=== PATIENT | male | born 2000 | race Caucasian/White ===

== ENCOUNTER 2020-01-10 11:53 | Emergency (ER) | payer SELFPAY ==
[~2020-01-10] VITALS: Ht 177.8 cm; Wt 102.0 kg
[2020-01-10 11:57] VITALS: BP 157/133
[2020-01-10] MEDS ORDERED: LIDOCAINE 1% Multi-Dose 20 ML VIAL. ONE (12:01)
--- NOTE | 2020-01-10 12:06 | PHYS DOC ---
Past History Past Medical History: No Pertinent History Past Surgical History: Tonsillectomy Smoking: Non-smoker Alcohol Use: None Drug Use: None General Adult EDM: Chief Complaint: LACERATION/AVULSION HPI: HPI: Patient is a 19-year-old male, fully immunized who presents to the emergency department for evaluation. He states he was at work, when he accidentally cut his left hand on a metal can. He sustained lacerations to the dorsal aspect of the left ring finger overlying the middle phalanx, somewhat radially, as well as a volar wound over the proximal phalanx of his middle finger. He denies any distal numbness, weakness, and is able to fully flex and extend his hand. His tetanus is up-to-date. He has no other complaints. Review of Systems: Review of Systems: Constitutional: Denies fever or chills Musculoskeletal: Denies back pain or joint pain Integument: Denies rash Neurologic: Denies focal weakness or sensory changes Heart Score: Risk Factors: Risk Factors: DM, Current or recent (<one month) smoker, HTN, HLP, family history of CAD, obesity. Risk Scores: Score 0 - 3: 2.5% MACE over next 6 weeks - Discharge Home Score 4 - 6: 20.3% MACE over next 6 weeks - Admit for Clinical Observation Score 7 - 10: 72.7% MACE over next 6 weeks - Early Invasive Strategies Current Medications: Current Meds: Current Medications Medications (Trade) Dose Ordered Sig/Carlos Start Time Stop Time Status Last Admin Dose Admin Lidocaine HCl 20 ml STK-MED ONCE 01/10/20 12:01 01/10/20 12:02 DC Physical Exam: PE: PHYSICAL EXAM: HEENT: Atruamatic NECK: Supple, normal ROM, non-tender. CARDIAC: Regular Rate and Rhythm LUNGS: Clear Bilaterally EXTREMITIES: There is a laceration on the dorsal aspect of the left ring finger, as well as on the volar surface of the left middle finger. Capillary refill is intact distally, as a sensation, full flexion and extension of the digits of the left hand is present when tested against resistance. The remainder the extremities are atraumatic. EKG: EKG: [] Radiology/Procedures: Radiology/Procedures: [] Course & Med Decision Making: Course & Med Decision Making LACERATION REPAIR PROCEDURE NOTE: The dorsal left ring finger 3 centimeter laceration was irrigated copiously with normal saline, anesthetized with 1% lidocaine without epinephrine, prepped with Betadine, and draped with sterile drapes. Sterile technique was used. The wound was closed with #6 running interlocking 4-0 nylon sutures. Good epithelial approximation was obtained. The patient tolerated the procedure well. LACERATION #2 REPAIR PROCEDURE NOTE: The volar left middle finger 3 centimeter laceration was irrigated copiously with normal saline, anesthetized with 1% lidocaine without epinephrine, prepped with Betadine, and draped with sterile drapes. Sterile technique was used. The wound was closed with #4 interrupted 4-0 nylon sutures. Good epithelial approximation was obtained. The patient tolerated the procedure well. Dragon Disclaimer: Dragon Disclaimer: This electronic medical record was generated, in whole or in part, using a voice recognition dictation system. Departure Departure: Impression: Primary Impression: Hand laceration Disposition: 01 HOME/RESIDENCE PRIOR TO ADM Condition: STABLE Patient Instructions: Laceration Care, Adult, Sutured Wound Care Additional Instructions: Keep wounds clean and dry. Stitches should be removed in 10 to 14 days. Please contact your PCP or return to the emergency department for suture removal. Justification of Admission: Justification of Admission: Justification of Admission Dx: N/A ERNST FERREIRA MD Jan 10, 2020 12:06
[2020-01-10] MEDS ORDERED: BACITRACIN ZINC TOPICAL OINT PACKET. TP ONE (12:45)
== END 2020-01-10 13:00 | disposition home or self-care (01) ==
LOC: ER 11:53
DX: S61.213A Laceration without foreign body of left middle finger without damage to nail, initial encounter (principal); S61.215A Laceration without foreign body of left ring finger without damage to nail, initial encounter; W26.8XXA Contact with other sharp object(s), not elsewhere classified, initial encounter; Y93.89 Activity, other specified; Y92.89 Other specified places as the place of occurrence of the external cause; Y99.0 Civilian activity done for income or pay
CPT/HCPCS: 12002; 99283

== ENCOUNTER 2020-01-22 09:59 | Emergency (ER) | payer OTHER ==
[~2020-01-22] VITALS: Ht 177.8 cm; Wt 100.0 kg
[2020-01-22 10:04] VITALS: BP 121/83
--- NOTE | 2020-01-22 10:11 | PHYS DOC ---
Past History Past Medical History: No Pertinent History Past Surgical History: No Surgical History, Tonsillectomy Smoking: Non-smoker Alcohol Use: Occasionally Drug Use: None General Adult EDM: Chief Complaint: SUTURE/STAPLE REMOVAL HPI: HPI: Patient is a 19 year old male who presents for evaluation of suture movable to his left hand. He states he initially cut it with a can about 13 days ago. Wound is healing well and there is no redness or drainage. Full range of motion to the affected finger is noted. They are neurovascular intact Review of Systems: Review of Systems: Constitutional: Denies fever or chills Eyes: Denies change in visual acuity HENT: Denies nasal congestion or sore throat Respiratory: Denies cough or shortness of breath Cardiovascular: Denies chest pain or edema GI: Denies abdominal pain, nausea, vomiting, bloody stools or diarrhea : Denies dysuria Musculoskeletal: Denies back pain or joint pain Integument: Denies rash Neurologic: Denies headache, focal weakness or sensory changes Endocrine: Denies polyuria or polydipsia Lymphatic: Denies swollen glands Psychiatric: Denies depression or anxiety Heart Score: Risk Factors: Risk Factors: DM, Current or recent (<one month) smoker, HTN, HLP, family history of CAD, obesity. Risk Scores: Score 0 - 3: 2.5% MACE over next 6 weeks - Discharge Home Score 4 - 6: 20.3% MACE over next 6 weeks - Admit for Clinical Observation Score 7 - 10: 72.7% MACE over next 6 weeks - Early Invasive Strategies Allergies: Allergies: Allergies Coded Allergies Type Severity Reaction Last Updated Verified No Known Drug Allergies 01/22/20 No Physical Exam: PE: Constitutional: Well developed, well nourished, no acute distress, non-toxic appearance. [] HENT: Normocephalic, atraumatic, bilateral external ears normal[] Eyes: conjunctiva normal, no discharge. [] Neck: Normal range of motion, no tenderness [] Cardiovascular:Heart rate regular rhythm, no murmur [] Lungs & Thorax: Bilateral breath sounds clear to auscultation [] Abdomen: Bowel sounds normal, soft, no tenderness[] Skin: Warm, dry, no erythema, no rash. [] Back: No tenderness. [] Extremities: No tenderness, no cyanosis, no clubbing, ROM intact, no edema. Healing suture sites left middle and ring finger [] Neurologic: Alert and oriented, normal motor function, normal sensory function, no focal deficits noted. [] Psychologic: Affect normal, judgement normal, mood normal. [] EKG: EKG: [] Radiology/Procedures: Radiology/Procedures: [] Course & Med Decision Making: Course & Med Decision Making Pertinent Labs and Imaging studies reviewed. (See chart for details) [] Dragon Disclaimer: Dragon Disclaimer: This electronic medical record was generated, in whole or in part, using a voice recognition dictation system. [id number] Nursing staff removed sutures, wound intact and healing well. Pt has good tendon function. Departure Departure: Impression: Primary Impression: Visit for suture removal Disposition: HOME/RESIDENCE PRIOR TO ADM Condition: STABLE Referrals: PCP,NO (PCP) Patient Instructions: Suture Removal Additional Instructions: Keep wounds clean and dry, apply triple antibiotic ointment on them daily for the next several days. Return if worsen, infection develops etc. Justification of Admission: Justification of Admission: Justification of Admission Dx: N/A ESTEFANY BAINS DO Jan 22, 2020 10:11
== END 2020-01-22 10:20 | disposition home or self-care (01) ==
LOC: ER 09:59
DX: S61.215D Laceration without foreign body of left ring finger without damage to nail, subsequent encounter (principal); S61.213D Laceration without foreign body of left middle finger without damage to nail, subsequent encounter; Z90.89 Acquired absence of other organs; W26.8XXD Contact with other sharp object(s), not elsewhere classified, subsequent encounter
CPT/HCPCS: 99281; 99282

== ENCOUNTER 2021-01-07 11:01 | Emergency (ER) | payer OTHER ==
[~2021-01-07] VITALS: Ht 177.8 cm; Wt 118.5 kg
--- NOTE | 2021-01-07 12:06 | RAD ---
AP, lateral, and oblique views of the left hand were performed. History: Hand pain Comparison: none. No fracture or dislocation is seen. The joint spaces are normal in appearance. No significant soft tissue swelling is seen. Impression: 1. Negative exam of the left hand. Electronically signed by: Emmanuel Jesus MD (01/07/2021 12:04 PM) [id number]
[2021-01-07] MEDS ORDERED: DIPH,PERTUSS(ACELL),TET VAC/PF 0.5 ML SYRINGE. VAX IM ONE (12:30)
--- NOTE | 2021-01-07 12:54 | PHYS DOC ---
Past History Past Medical History: No Pertinent History Past Surgical History: Tonsillectomy Smoking: Non-smoker Alcohol Use: None Drug Use: None Adult General Chief Complaint Chief Complaint: LACERATION/AVULSION [facility] Patient is a 20-year-old previously healthy male who presents to the emergency room after cutting his thumb at work. Patient was pulling wires through when one of the wires cut his finger. He denies any significant bleeding. He states he is able to fully move the thumb. He is unsure when his last tetanus shot was and would like to get a tetanus shot today. He has some mild aching around the wound. He denies any other injuries. Review of Systems Review of Systems Complete ROS is negative unless otherwise documented in HPI Current Medications Current Medications Current Medications Medications (Trade) Dose Ordered Sig/Carlos Start Time Stop Time Status Last Admin Dose Admin Diphtheria/ Pertussis/Tetanus Vacc (ADACEL TDap SYRINGE) 0.5 ml ONCE ONCE 01/07/21 12:30 01/07/21 12:31 DC 01/07/21 12:34 0.5 ML Allergies Allergies Allergies Coded Allergies Type Severity Reaction Last Updated Verified No Known Drug Allergies 01/22/20 No Physical Exam Physical Exam General: Awake, alert, NAD. Well Nourished, well hydrated. Cooperative HEENT: Atraumatic, EOMI, PERRL, airway patent, moist oral mucosa Neck: Supple, trachea midline Respiratory: CTA bilaterally, normal effort, no wheezing/crackles CV: RRR, no murmur, cap refill <2 GI: Soft, nondistended, nontender, no masses MSK: Left hand: Intact range of motion of all 5 fingers, full extension and flexion of the left thumb, intact sensation Skin: Warm, dry. Left thumb: 2 cm superficial laceration to the dorsal surface below the joint Neuro: A&O x3, speech NL, sensory and motor grossly intact, no focal deficits Psych: Normal affect, normal mood, not suicidal or homicidal Current Patient Data Vital Signs Vital Signs Date Time Temp Pulse Resp B/P (MAP) Pulse Ox O2 Delivery O2 Flow Rate FiO2 01/07/21 11:13 98.4 76 16 160/84 (109) 99 Room Air EKG EKG [] Radiology/Procedures Radiology/Procedures [] Heart Score C/O Chest Pain: N/A Risk Factors: Risk Factors: DM, Current or recent (<one month) smoker, HTN, HLP, family history of CAD, obesity. Risk Scores: Risk Factors: DM, Current or recent (<one month) smoker, HTN, HLP, family history of CAD, obesity. Course & Med Decision Making Course & Med Decision Making Pertinent Labs and Imaging studies reviewed. (See chart for details) Patient is 20-year-old male who presents to the emergency room with a laceration to the thumb. Wound was repaired with Dermabond and finger was placed in a finger splint. Discussed proper care of Dermabond with the patient. Discussed with him that he should be wearing the finger splint at all times over the next 7 days. Tetanus was updated. Patient's test results and vitals while in the ED were fully reviewed and discussed with the patient. Patient is stable and at this time does not need admission to the hospital. We have discussed strict return precautions and the importance of following up with their Primary Care Physician. Patient stated understanding and was given an opportunity to ask any questions. Patient is in agreement with plan. Dragon Disclaimer Dragon Disclaimer This electronic medical record was generated, in whole or in part, using a voice recognition dictation system. Laceration/Wound Repair Laceration/Wound Repair : Wound Location: upper extremity (left thumb) Wound's Depth, Shape: superficial Wound Length (cm): 2 Wound Explored: no foreign body removed Irrigated w/ Saline (ccs): 500 Betadine Prep?: No Wound Repaired With: Dermabond Splint Applied?: Yes Type of Splint Applied: finger Departure Departure: Impression: Primary Impression: Laceration of thumb Disposition: HOME / SELF CARE / HOMELESS Condition: STABLE Referrals: ROXI GONZALEZ MD (PCP) Patient Instructions: Form - Return To Work, Laceration Care, Adult Additional Instructions: Do not place ointment onto the glue, keep splint on. REMI GILES MD Jan 07, 2021 12:54
[2021-01-07 13:00] VITALS: BP 154/78
== END 2021-01-07 13:00 | disposition home or self-care (01) ==
LOC: ER 11:01
DX: S61.012A Laceration without foreign body of left thumb without damage to nail, initial encounter (principal); W26.8XXA Contact with other sharp object(s), not elsewhere classified, initial encounter; Y93.89 Activity, other specified; Y92.89 Other specified places as the place of occurrence of the external cause; Y99.8 Other external cause status
CPT/HCPCS: 12001; 73130; 90471; 90715; 99283